=== PATIENT | female | born 1960 | race Caucasian/White ===

== ENCOUNTER 2017-12-01 11:03 | Emergency (ER) | payer OTHER ==
[~2017-12-01] VITALS: Ht 154.9 cm; Wt 72.0 kg
[~2017-12-01 11:03] MED LIST: CYCL5TAB PO; NAPR-576 PO
[2017-12-01 11:07] VITALS: BP 169/96; PULSE 102; RESP 16; TEMP 99.1; O2SAT 97
[2017-12-01] MEDS ORDERED: RANI150C PO (12:19)
--- NOTE | 2017-12-01 12:19 | PD ---
HPI Chief Complaint: Abdominal Pain Time Seen by Provider: 12:08 Travel History International Travel<30 days: No Contact w/Intl Traveler<30days: No Traveled to known affect area: No History of Present Illness HPI 57-year-old female presents with abdominal pain and intermittent diarrhea since Monday. Location is left lower quadrant. She states she also has a hernia in that location that bothers her occasionally. She denies any other concurrent complaints. She denies recurrent history of this. She denies prior history of diverticulitis. Quality crampy. Severity is moderate. She denies specific modifying factors. PFSH Past Medical History Cardiovascular Problems: Yes Cerebrovascular Accident: Yes Diminished Hearing: No Past Surgical History Surgical History: No Previous Surgery Social History Alcohol Use: No Tobacco Use: No Substance Use: No Allergies-Medications (Allergen,Severity, Reaction): Coded Allergies: latex (Unverified Allergy, Intermediate, Itching, 12/01/17) Reported Meds & Prescriptions Reported Meds & Active Scripts Active Reported Ranitidine (Ranitidine HCl) 150 Mg Cap 150 Mg PO HS Review of Systems Except as stated in HPI: all other systems reviewed are Neg Physical Exam Narrative GENERAL: 57-year-old female in no apparent distress SKIN: Focused skin assessment warm/dry. HEAD: Atraumatic. Normocephalic. EYES: Pupils equal and round. No scleral icterus. No injection or drainage. ENT: No nasal bleeding or discharge. Mucous membranes pink and moist. NECK: Trachea midline. No JVD. CARDIOVASCULAR: Regular rate and rhythm. RESPIRATORY: No accessory muscle use. Clear to auscultation. Breath sounds equal bilaterally. GASTROINTESTINAL: Abdomen soft, mild ttp in llq, nondistended. no rebound. MUSCULOSKELETAL: No obvious deformities. No clubbing. No cyanosis. No edema. NEUROLOGICAL: Awake and alert. No obvious cranial nerve deficits. Motor grossly within normal limits. Normal speech. PSYCHIATRIC: Appropriate mood and affect; insight and judgment normal. Data Data Last Documented VS Vital Signs Date Time Temp Pulse Resp B/P (MAP) Pulse Ox O2 Delivery O2 Flow Rate FiO2 12/01/17 11:07 99.1 102 16 169/96 (120) 97 Orders Orders Complete Blood Count With Diff (12/01/17 12:08) Comprehensive Metabolic Panel (12/01/17 12:08) Urinalysis - C+S If Indicated (12/01/17 12:08) Lipase (12/01/17 12:08) Ct Abd/Pel W Iv Contrast(Rout) (12/01/17 ) Iv Access Insert/Monitor (12/01/17 12:08) Iohexol 350 Inj (Omnipaque 350 Inj) (12/01/17 13:25) Ed Discharge Order (12/01/17 14:31) Labs Laboratory Tests Test 12/01/17 12:15 12/01/17 12:30 Urine Collection Type CLEAN CATCH Urine Color YELLOW Urine Turbidity CLEAR Urine pH 7.0 Urine Specific [place] 1.015 Urine Protein NEG mg/dL Urine Glucose (UA) NEG mg/dL Urine Ketones NEG mg/dL Urine Occult Blood NEG Urine Nitrite NEG Urine Bilirubin NEG Urine Urobilinogen 0.2 MG/DL Urine Leukocyte Esterase NEG Urine Squamous Epithelial Cells 0-5 /hpf Microscopic Urinalysis Comment CULT NOT INDICATED White Blood Count 6.6 TH/MM3 Red Blood Count 4.89 MIL/MM3 Hemoglobin 14.3 GM/DL Hematocrit 42.8 % Mean Corpuscular Volume 87.6 FL Mean Corpuscular Hemoglobin 29.2 PG Mean Corpuscular Hemoglobin Concent 33.3 % Red Cell Distribution Width 12.4 % Platelet Count 224 TH/MM3 Mean Platelet Volume 8.4 FL Neutrophils (%) (Auto) 67.7 % Lymphocytes (%) (Auto) 23.9 % Monocytes (%) (Auto) 7.2 % Eosinophils (%) (Auto) 0.7 % Basophils (%) (Auto) 0.5 % Neutrophils # (Auto) 4.5 TH/MM3 Lymphocytes # (Auto) 1.6 TH/MM3 Monocytes # (Auto) 0.5 TH/MM3 Eosinophils # (Auto) 0.0 TH/MM3 Basophils # (Auto) 0.0 TH/MM3 CBC Comment DIFF FINAL Differential Comment Blood Urea Nitrogen 12 MG/DL Creatinine 0.73 MG/DL Random Glucose 98 MG/DL Total Protein 7.9 GM/DL Albumin 4.1 GM/DL Calcium Level 9.1 MG/DL Alkaline Phosphatase 75 U/L Aspartate Amino Transf (AST/SGOT) 21 U/L Alanine Aminotransferase (ALT/SGPT) 17 U/L Total Bilirubin 1.1 MG/DL Sodium Level 139 MEQ/L Potassium Level 4.0 MEQ/L Chloride Level 105 MEQ/L Carbon Dioxide Level 28.7 MEQ/L Anion Gap 5 MEQ/L Estimat Glomerular Filtration Rate 82 ML/MIN Lipase 184 U/L MDM Medical Decision Making Medical Screen Exam Complete: Yes Emergency Medical Condition: Yes Medical Record Reviewed: Yes (pm[facility] confirmed) Interpretation(s) CBC & BMP Diagram 12/01/17 12:30 Total Protein 7.9, Albumin 4.1, Calcium Level 9.1, Alkaline Phosphatase 75, Aspartate Amino Transf (AST/SGOT) 21, Alanine Aminotransferase (ALT/SGPT) 17, Total Bilirubin 1.1 H Last 24 hours Impressions Abdomen/Pelvis CT 12/01/17 0000 Signed Impressions: Service Date/Time: Friday, December 01, 2017 13:14 - CONCLUSION: 1. No acute findings. Shaggy Garland MD Differential Diagnosis Diverticulitis, obstruction, hernia, stone Narrative Course Will check blood work, CT, urinalysis and reevaluate ed workup no emergent process, Patient denies any new complaints, all questions answered. Patient knows that follow up is incumbent on them and to return to the emergency room immediately if new or worsening symptoms develop. Patient given strict return precautions, vitals reviewed and are normal, agrees to further workup as an outpatient. Diagnosis Primary Impression: Abdominal pain Qualified Codes: R10.32 - Left lower quadrant pain Patient Instructions: General Instructions Additional Instructions: tylenol as needed, follow with primary monday, return as needed Med/Other Pt SpecificInfo: No Change to Meds Disposition: 01 DISCHARGE HOME Condition: Stable Viky Little MD Dec 01, 2017 12:19
[2017-12-01 12:41] LABS: BILIRUBIN, URINE NEG (NEG); BLOOD, URINE NEG (NEG); GLUCOSE,URINE NEG (NEG); KETONE, URINE NEG (NEG); NITRITE,URINE NEG (NEG); URINE COLOR YELLOW (YELLW/STRAW); URINE LEUKOCYTE ESTERASE NEG (NEG)
[2017-12-01 12:43] LABS: AUTOMATED NEUTROPHIL # 4.5 TH/MM3 (1.8-7.7); BASOPHIL % 0.5 % (0.0-2.0); EOSINOPHIL % 0.7 % (0.0-4.0); HEMATOCRIT 42.8 % (35.0-46.0); HEMOGLOBIN 14.3 GM/DL (11.6-15.3); LYMPH % 23.9 % (9.0-44.0); LYMPHOCYTE # 1.6 TH/MM3 (1.0-4.8); MEAN CELL VOLUME 87.6 FL (80.0-100.0); MEAN CORPUSCULAR HEMOGLOBIN 29.2 PG (27.0-34.0); MEAN CORPUSCULAR HGB CONC 33.3 % (32.0-36.0); MEAN PLATELET VOLUME 8.4 FL (7.0-11.0); MONO % 7.2 % (0.0-8.0); MONOCYTE # 0.5 TH/MM3 (0-0.9); NEUT % 67.7 % (16.0-70.0); PLATELET COUNT 224 TH/MM3 (150-450); RED BLOOD COUNT 4.89 MIL/MM3 (4.00-5.30); RED CELL DISTRIBUTION WIDTH 12.4 % (11.6-17.2); WHITE BLOOD COUNT 6.6 TH/MM3 (4.0-11.0)
[2017-12-01 12:47] LABS: SQUAMOUS EPITHELIAL CELL URINE 0-5 /hpf (0-5)
[2017-12-01 12:48] LABS: CHLORIDE 105 MEQ/L (98-107); SODIUM (NA) 139 MEQ/L (136-145)
[2017-12-01 12:51] LABS: CALCIUM 9.1 MG/DL (8.5-10.1)
[2017-12-01 12:52] LABS: ALBUMIN 4.1 GM/DL (3.4-5.0); BICARBONATE 28.7 MEQ/L (21.0-32.0); BLOOD UREA NITROGEN 12 MG/DL (7-18); GLUCOSE,RANDOM 98 MG/DL (74-106)
[2017-12-01 12:54] LABS: ALT (GPT) 17 U/L (10-53)
[2017-12-01 12:55] LABS: AST (GOT) 21 U/L (15-37); CREATININE 0.73 MG/DL (0.50-1.00); GLOMERULAR FILTRATION RATE 82 ML/MIN (>89)
[2017-12-01 12:56] LABS: TOTAL BILIRUBIN ADULT 1.1 MG/DL (0.2-1.0); TOTAL PROTEIN 7.9 GM/DL (6.4-8.2)
[2017-12-01 12:57] LABS: ALKALINE PHOSPHATASE 75 U/L (45-117)
[2017-12-01] MEDS ORDERED: IOHEXOL 350 MG/ML 10 ML VIAL (for RAD DIAG) IVCONTRAST ONE (13:25)
--- NOTE | 2017-12-01 14:03 | RADRPT ---
EXAM DATE/TIME: 12/01/2017 13:14 [facility] COMPARISON: No previous studies available for comparison. INDICATIONS : Left lower quadrant pain. IV CONTRAST: 85 cc Omnipaque 350 (iohexol) IV ORAL CONTRAST: No oral contrast ingested. RADIATION DOSE: 9.51 CTDIvol (mGy) MEDICAL HISTORY : Cerebrovascular disease. Cardiovascular disease SURGICAL HISTORY : None. ENCOUNTER: Initial ACUITY: 2 days PAIN SCALE: 8/10 LOCATION: Left lower quadrant TECHNIQUE: Volumetric scanning of the abdomen and pelvis was performed. Using automated exposure control and ad justment of the mA and/or kV according to patient size, radiation dose was kept as low as reasonably achievable to obtain optimal diagnostic quality images. DICOM format image data is available electro nically for review and comparison. FINDINGS: Lung bases are clear with no acute findings in the liver, spleen, adrenals, kidneys or pancreas. No c alcified gallstones or biliary ductal dilatation. There is no free air or free fluid. No bowel obstruction. No adnexal mass or free fluid. Small hiatal hernia. CONCLUSION: 1. No acute findings. Shaggy Garland MD on December 01, 2017 at 13:58 Board Certified Radiologist. This report was verified electronically.
[2017-12-01 14:54] VITALS: BP 130/78
== END 2017-12-01 14:55 | disposition home or self-care (01) ==
LOC: PHED 11:03
DX: R10.32 Left lower quadrant pain (principal); R19.7 Diarrhea, unspecified; Z86.79 Personal history of other diseases of the circulatory system; Z86.73 Personal history of transient ischemic attack (TIA), and cerebral infarction without residual deficits
CPT/HCPCS: 74177; 80053; 81001; 83690; 85025; 99285; Q9967